=== PATIENT | male | born 1970 | race Caucasian/White ===

== ENCOUNTER 2020-05-31 10:21 | Day surgery (SDC) | payer OTHER ==
[~2020-05-31] VITALS: Ht 172.7 cm; Wt 111.6 kg
[2020-05-31] VITALS (9 sets, daily range): BP systolic 128–412; BP diastolic 72–87; PULSE 81–105; TEMP 98.4–98.9
--- NOTE | 2020-05-31 11:15 | NUR ---
TO RM 5 AT 1041- CALL LIGHT IN REACH AT BEDSIDE.
[2020-05-31] MEDS ORDERED: LIPITOR 40MG TA40 MG PO (11:16)
[2020-05-31] MEDS ORDERED: LIORESAL20 MG PO (11:16)
[2020-05-31] MEDS ORDERED: NORCO 325 MG-7.1 TAB PO ×2 (11:17→17:12)
[2020-05-31] MEDS ORDERED: MICARDIS40 MG PO (11:17)
[2020-05-31] MEDS ORDERED: ALEVE PM PO (11:17)
[2020-05-31] MEDS ORDERED: CALCIUM-MAGNES1 EAC1 PO (11:18)
[2020-05-31] MEDS ORDERED: ONE DAILY MULTI1 TA1 PO (11:18)
[2020-05-31] MEDS ORDERED: MOTRIN 600600 MG/TAB PO (17:11)
--- NOTE | 2020-05-31 18:01 | NUR ---
Pt arrived to the floor from PACU. He is alert and oriented, pain complaints 4/10, states it is tolerable. Pt denies feeling like he wants anything to eat or drink at this time. is present in the room.
--- NOTE | 2020-05-31 20:25 | NUR ---
Patient assessed at this time. Reports level 6 pain to abdomen with movement. Given PRN [place] for pain at this time. Encouraged to call and notify staff if medications is not effective, and voiced understanding. Peripheral INT to left hand. Site without redness, warmth, swelling, and pain. Denies having SOB and dyspnea. LS CTA. Respirations even and unlabored. HRR. Capillary refill less than 3 seconds. Non-tenting skin turgor. BSAx4. Abdominal binder in place. Patient continues to be unsure at this time if he wants to go home tonight or not. Told patient to keep this nurse updated, and voiced understanding. No further questions, needs, or concerns at this time. Resting in bed with call light within reach.
--- NOTE | 2020-05-31 22:30 | NUR ---
When rechecking on patient's pain, patient stated that he was feeling good and ready to discharge home. Asked patient if he was sure, due to him having stairs at home and having abdominal pain with movement. Patient denies having pain at this time, and stated he was sure he wanted to go home. Given discharge paperwork and discharge insturctions, as well as hernia repair discharge information. Voiced no questions, needs, or concerns at this time. INT taken out to left hand. Patient changed and continues to deny pain. Taken out via wheelchair with staff assistance at this time. accompanied patient as well.
== END 2020-05-31 22:30 | disposition home or self-care (01) ==
LOC: SDCO 10:21 → SURG 18:00 → SDCO 22:30
DX: K43.2 Incisional hernia without obstruction or gangrene (principal); G47.33 Obstructive sleep apnea (adult) (pediatric); E78.5 Hyperlipidemia, unspecified; I10 Essential (primary) hypertension; G89.29 Other chronic pain; M54.9 Dorsalgia, unspecified; M47.26 Other spondylosis with radiculopathy, lumbar region; G47.00 Insomnia, unspecified; K58.9 Irritable bowel syndrome, unspecified; Z79.891 Long term (current) use of opiate analgesic; Z79.899 Other long term (current) drug therapy; Z86.73 Personal history of transient ischemic attack (TIA), and cerebral infarction without residual deficits; Z87.891 Personal history of nicotine dependence; Z99.89 Dependence on other enabling machines and devices; Z83.3 Family history of diabetes mellitus; Z80.9 Family history of malignant neoplasm, unspecified
CPT/HCPCS: OP; C1781; J0690; J1100; J1170; J1885; J2405; J2704; J3010; J7120

== ENCOUNTER → 2023-04-01 | Outpatient (CLI) | payer OTHER ==
[~2023-04-01] MED LIST: ALEVE PM PO; CALCIUM-MAGNES1 EAC1 PO; LIORESAL20 MG PO; LIPITOR 40MG TA40 MG PO; MICARDIS40 MG PO; MOTRIN 600600 MG/TAB PO; NORCO 325 MG-7.1 TAB PO; ONE DAILY MULTI1 TA1 PO
== END ==
LOC: MHCPAIN 09:57
DX: M54.12 Radiculopathy, cervical region (principal); M48.02 Spinal stenosis, cervical region; I10 Essential (primary) hypertension; F17.210 Nicotine dependence, cigarettes, uncomplicated
CPT/HCPCS: G0463

== ENCOUNTER → 2023-04-16 | Outpatient (CLI) | payer OTHER ==
[~2023-04-16] MED LIST changes: +Iohexol 300 - 10 ML VIAL ONE; +Lidocaine PF 2% (20 MG/ML) 2 ML VIAL ONE
== END ==
LOC: MHCPAIN 08:52
DX: M54.12 Radiculopathy, cervical region (principal)
CPT/HCPCS: J1100; Q9967